=== PATIENT | female | born 1985 | race Caucasian/White ===

== ENCOUNTER → 2021-01-07 | Outpatient (CLI) | payer OTHER ==
[~2021-01-07] MED LIST: NOHOMEMEDICATIONS; NORCO 5-325 TA1 EACH PO
[2021-01-07 13:53] LABS: URINE BILIRUBIN NEGATIVE (Negative); URINE BLOOD 3+ (Negative); URINE CLARITY CLEAR; URINE COLOR YELLOW; URINE GLUCOSE-RANDOM NEGATIVE (Negative); URINE KETONES NEGATIVE (Negative); URINE LEUKOCYTES-REFLEX 1+ (Negative); URINE NITRITE-REFLEX NEGATIVE (Negative); URINE PROTEIN NEGATIVE (Negative)
[2021-01-07 13:54] LABS: ABSOLUTE EOSINOPHILS 0.1 thou/uL (0.0-0.7); ABSOLUTE LYMPHOCYTES 1.2 thou/uL (0.8-5.3); ABSOLUTE MONOCYTES 0.8 thou/uL (0.0-1.2); ABSOLUTE NEUTROPHILS 6.7 thou/uL (1.6-8.1); BASOPHILS 0.5 %; EOSINOPHILS 1.1 %; HEMOGLOBIN 13.7 gm/dL (12.0-15.0); LYMPHOCYTES 13.7 %; MCH 27.5 pg (26.0-34.0); MCHC 33.5 g/dL (28.0-37.0); MCV 82.3 fL (80.0-100.0); MONOCYTES 9.1 %; MPV 8.2 fl. (7.2-11.1); NUCLEATED RBCS 0 /100WBC; PLATELET COUNT* 287 thou/uL (150-400); POLYS 75.6 %; RBC 4.97 mil/uL (4.20-5.00); RDW-CV 15.3 % (10.5-14.5); WBC 8.8 thou/uL (4.0-11.0)
[2021-01-07 13:59] LABS: BACTERIA-REFLEX 1-9 Few /HPF (None Seen); CASTS None Seen /LPF (None Seen); CRYSTALS None Seen /LPF (None Seen); MUCUS None Seen strn/LPF (None Seen); SQUAMOUS 4-10 Moderate /LPF (0-3); URINE RBC >20 Many /HPF (0-2); URINE WBC-REFLEX 6-15 Few /HPF (0-5)
[2021-01-07 14:11] LABS: ALBUMIN 3.7 g/dL (3.4-5.0); ALKALINE PHOSPHATASE 69 U/L (46-116); ANION GAP 9 mmol/L (7-16); BUN 9 mg/dL (7-18); CALCIUM 8.9 mg/dL (8.5-10.1); CHLORIDE 103 mmol/L (98-107); CHOLESTEROL 152 mg/dL (<200); CO2 28 mmol/L (21-32); GLUCOSE 94 mg/dL (70-99); HDL CHOLESTEROL 51 mg/dL (>40); LDL CHOLESTEROL 77 mg/dL (<100); POTASSIUM 3.5 mmol/L (3.5-5.1); SERUM ASSESSMENT Clear; SGOT 11 U/L (15-37); SGPT 20 U/L (30-65); SODIUM 140 mmol/L (136-145); TOTAL BILIRUBIN 0.3 mg/dL (<0.1-1.0); TOTAL PROTEIN 7.4 g/dL (6.4-8.2); TRIGLYCERIDE 120 mg/dL (<150); VLDL 24 mg/dL (<40)
[2021-01-08 02:06] LABS: GLYCOHEMOGLOBIN (HGB A1C) 5.2 % (4.8-5.6)
== END ==
LOC: M.LAB 13:28
PROVIDERS: ATTEND Family Medicine
DX: Z13.220 Encounter for screening for lipoid disorders (principal); E66.9 Obesity, unspecified; E55.9 Vitamin D deficiency, unspecified; Z68.32 Body mass index [BMI] 32.0-32.9, adult